=== PATIENT | male | born 1945 | race Caucasian/White ===

== ENCOUNTER 2017-10-09 10:40 | Outpatient (CLI) | payer MEDICARE, MEDICAID, SELFPAY ==
[2017-10-09 11:13] VITALS: BMI 25.7
[2017-10-09 11:34] LABS: Albumin Level 3.3 gm/dL (3.4-5.0); Calcium 9.4 mg/dL (8.5-10.1); Creatinine Clearance Estimated 63 mL/min (0-300); Creatinine,Serum 0.63 mg/dL (0.70-1.30); Estimated Glomerular Filt Rate 125 ml/min (>60); GFR (African American) 151 ML/MIN (>60)
[2017-10-09 12:15] VITALS: BP 147/77; PULSE 78; RESP 18; TEMP 36.6
[2017-10-09 12:40] VITALS: BP 140/73; PULSE 68; RESP 20; TEMP 36.6; O2SAT 94
== END 2017-10-09 12:40 | disposition home or self-care (01) ==
LOC: INF 10:46
PROVIDERS: PCP Family Medicine; Visit Provider Family Medicine
DX: M81.0 Age-related osteoporosis without current pathological fracture (principal)
CPT/HCPCS: 82040; 82310; 82565; 96374; J3489

== ENCOUNTER 2020-06-11 09:55 | Outpatient (CLI) | payer MEDICARE, MEDICAID, SELFPAY ==
[2020-06-11] VITALS (18 sets, daily range): BP systolic 102–164; BP diastolic 46–91; PULSE 73–87; RESP 16–20; TEMP 35.9–36.6; O2SAT 92–97; BMI 24.1
[2020-06-11 10:45] LABS: Hematocrit 21.7 % (42.0-52.0); Hemoglobin 6.9 g/dL (14.1-18.0)
--- NOTE | 2020-06-11 10:50 | PC.NURSE ---
1045-RECEIVED NOTIFICATION FROM STACY KIM IN LAB THAT PT'S HGB 6.9, HCT 21.7. INSTRUCTED TO PROCEED WITH TYPE AND CROSSMATCH OF 2 UNITS PRBC'S TO BE TRANSFUSED TODAY.
--- NOTE | 2020-06-11 12:09 | PC.NURSE ---
1155 - PREMEDICATED WITH ACETAMINOPHEN 650MG AND DIPHENHYDRAMINE 25MG PO AT THIS TIME.
--- NOTE | 2020-06-11 14:23 | PC.NURSE ---
1336-RATE INCREASED TO 200 ML/HR AT THIS TIME.
--- NOTE | 2020-06-11 15:26 | PC.NURSE ---
1520-INCREASED RATE TO 150 ML/HR AT THIS TIME.
--- NOTE | 2020-06-11 15:57 | PC.NURSE ---
1550-INCREASED RATE TO 200 ML/HR AT THIS TIME.
--- NOTE | 2020-06-11 17:48 | PC.NURSE ---
1740-BLOOD DRAWN FROM IV AT THIS TIME TO CHECK 1 HR POST HGB/HCT.
[2020-06-11 17:54] LABS: Hematocrit 26.4 % (42.0-52.0)
[2020-06-11 17:55] LABS: Hemoglobin 8.4 g/dL (14.1-18.0)
== END 2020-06-11 17:45 | disposition home or self-care (01) ==
LOC: INF 09:59
PROVIDERS: PCP Family Medicine; Visit Provider Physician Assistant Medical
DX: D50.0 Iron deficiency anemia secondary to blood loss (chronic) (principal)
CPT/HCPCS: 36415; 36430; 85014; 85018; 86850; P9016